=== PATIENT | female | born 1955 | race African-American/Black ===

== ENCOUNTER 2018-12-19 08:48 | Emergency (ER) | payer SELFPAY ==
[~2018-12-19] VITALS: Ht 167.6 cm; Wt 83.9 kg
[~2018-12-19 08:48] MED LIST: ASPI-482 PO; FLEXERIL; TRAM100T30 PO
[2018-12-19 09:26] LABS: BASO % 1 % (0-3); EOS % 1 % (0-3); HEMATOCRIT 39.2 % (36.0-47.0); HEMOGLOBIN 13.2 g/dL (12.0-15.5); LYMPH # 1.7 x10^3/uL (1.0-4.8); LYMPH % 41 % (24-48); MEAN CORPUSCULAR HEMOGLOBIN 32 pg (25-35); MEAN CORPUSCULAR HGB CONC 34 g/dL (31-37); MEAN CORPUSCULAR VOLUME 96 fL (79-100); MONO # 0.2 x10^3/uL (0.0-1.1); MONO % 6 % (0-9); NEUT # 2.1 x10^3uL (1.8-7.7); NEUT % 52 % (31-73); PLATELET COUNT 204 x10^3/uL (140-400); RED BLOOD COUNT 4.09 x10^6/uL (3.50-5.40); RED CELL DISTRIBUTION WIDTH 13.5 % (11.5-14.5); WHITE BLOOD COUNT 4.1 x10^3/uL (4.0-11.0)
[2018-12-19 09:36] LABS: CALCIUM 9.5 mg/dL (8.5-10.1); CREATININE 0.9 mg/dL (0.6-1.0); GFR 76.3; POTASSIUM 3.7 mmol/L (3.5-5.1)
--- NOTE | 2018-12-19 09:40 | RAD ---
CHEST AP ONLY Clinical indications: chest and dizziness since last night COMPARISON: None available. Findings: No acute lung infiltrate or pleural effusion or pulmonary edema or lung mass or pneumothorax is seen. The heart size, pulmonary vasculature, mediastinum and both nellie are unremarkable. Impression: No acute radiographic abnormality is seen. Electronically signed by: Brad Pablo MD (12/19/2018 9:35 AM) [facility]
[2018-12-19 09:43] LABS: ALBUMIN 3.5 g/dL (3.4-5.0); ALBUMIN/GLOBULIN RATIO 0.8 (1.0-1.7); TOTAL BILIRUBIN 0.7 mg/dL (0.2-1.0); TOTAL PROTEIN 7.8 g/dL (6.4-8.2)
[2018-12-19 10:28] LABS: BILIRUBIN,URINE MODERATE (NEG); CLARITY,URINE CLOUDY; COLOR,URINE ORANGE; NITRITE,URINE NEGATIVE (NEG); PH,URINE 5.5; PROTEIN,URINE 30 mg/dL (NEG-TRACE)
[2018-12-19 10:50] LABS: HYALINE CASTS, URINE FEW /HPF
[2018-12-19 10:51] LABS: BACTERIA,URINE MODERATE /HPF (0-FEW); RBC,URINE OCC /HPF (0-2); SQUAMOUS EPITHELIAL CELL,UR MOD /LPF
--- NOTE | 2018-12-19 11:20 | EKG ---
[facility] [address] [place] [address] Test Date: 2018-12-19 Test Time: 08:52:52 Pat Name: JEIMY CAMPOS Department: Room: Gender: F Color Room Attendant: : 1955 Requested By: SAGAR NGUYEN Order Number: [id number] Reading MD: Measurements Intervals [place] Rate: 90 P: 52 [place]: 136 QRS: 37 QRSD: 78 T: 70 QT: 360 QTc: 444 Interpretive Statements SINUS RHYTHM LEFT ATRIAL ABNORMALITY T ABNORMALITY IN HIGH LATERAL LEADS ABNORMAL ECG RI6.01 No previous ECG available for comparison
[2018-12-19] MEDS ORDERED: LORA-434 PO (12:25)
[2018-12-19 12:27] VITALS: BP 153/90
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
== END 2018-12-19 13:03 | disposition home or self-care (01) ==
LOC: ER 08:48
DX: F41.9 Anxiety disorder, unspecified (principal); R07.89 Other chest pain; R53.83 Other fatigue; R40.0 Somnolence; I25.10 Atherosclerotic heart disease of native coronary artery without angina pectoris; Z90.710 Acquired absence of both cervix and uterus; Z86.718 Personal history of other venous thrombosis and embolism
CPT/HCPCS: 36415; 71045; 80053; 81001; 83880; 84484; 85025; 93005; 99284-25

== ENCOUNTER 2018-12-20 20:44 | Emergency (ER) | payer SELFPAY ==
[2018-12-19 08:48] VITALS: BP 108/75
[~2018-12-20 20:44] MED LIST changes: +LORA-434 PO
== END 2018-12-20 20:45 | disposition left against medical advice (07) ==
LOC: ER 20:44
DX: M25.511 Pain in right shoulder (principal); Z53.21 Procedure and treatment not carried out due to patient leaving prior to being seen by health care provider

== ENCOUNTER 2019-08-23 09:50 | Emergency (ER) | payer SELFPAY ==
[~2019-08-23] VITALS: Ht 165.1 cm; Wt 88.5 kg
[2019-08-23 10:00] VITALS: BP 127/88
[2019-08-23 10:41] LABS: BASO % 1 % (0-3); EOS % 1 % (0-3); HEMOGLOBIN 13.8 g/dL (12.0-15.5); LYMPH # 0.9 x10^3/uL (1.0-4.8); LYMPH % 27 % (24-48); MEAN CORPUSCULAR HEMOGLOBIN 35 pg (25-35); MEAN CORPUSCULAR HGB CONC 34 g/dL (31-37); MEAN CORPUSCULAR VOLUME 102 fL (79-100); MONO # 0.2 x10^3/uL (0.0-1.1); MONO % 7 % (0-9); NEUT # 2.1 x10^3/uL (1.8-7.7); NEUT % 65 % (31-73); PLATELET COUNT 154 x10^3/uL (140-400); RED BLOOD COUNT 3.91 x10^6/uL (3.50-5.40); RED CELL DISTRIBUTION WIDTH 15.3 % (11.5-14.5); WHITE BLOOD COUNT 3.3 x10^3/uL (4.0-11.0)
--- NOTE | 2019-08-23 10:41 | PHYS DOC ---
Past Medical History Past Medical History: No Pertinent History Past Surgical History: Hysterectomy Alcohol Use: Occasionally Drug Use: None Adult General Chief Complaint Chief Complaint: DIZZY/LIGHT HEADED HPI HPI Patient is a 64 year old female who presents with complaining of fainting. Patient states she was standing at her kitchen this morning and lightheadedness and dizzy with blurred vision and had a syncopal episode with loss of consciousness without fall or head injury that was witnessed by her . Santy mallory denies focal neuro deficit, nausea and vomiting, fever and chills, abdominal pain, chest pain and shortness of breath, urinary symptom. Patient states she had 1 episode of vomiting 2 days ago. Patient states she has had 4-5 episodes of syncope for the last 3 months and was admitted to the [facility] and with extensive evaluation and was told she had fast heartbeat and no treatment was given. Patient denies using drugs and smoking cigarettes and states she during wine about twice a week. Review of Systems Review of Systems Constitutional: Denies fever or chills [] Eyes: Denies change in visual acuity, redness, or eye pain [] HENT: Denies nasal congestion or sore throat [] Respiratory: Denies cough or shortness of breath [] Cardiovascular: No additional information not addressed in HPI [] GI: Denies abdominal pain, nausea, vomiting, bloody stools or diarrhea [] : Denies dysuria or hematuria [] Musculoskeletal: Denies back pain or joint pain [] Integument: Denies rash or skin lesions [] Neurologic: Denies headache, focal weakness or sensory changes [] Endocrine: Denies polyuria or polydipsia [] All other systems were reviewed and found to be within normal limits, except as documented in this note. Current Medications Current Medications Current Medications Medications (Trade) Dose Ordered Sig/Zach Start Time Stop Time Status Last Admin Dose Admin Magnesium Oxide (Magnesium Oxide) 400 mg DAILY 08/23/19 13:00 08/23/19 14:22 DC 08/23/19 13:33 400 MG Sodium Chloride 1,000 ml @ 1,000 mls/hr 1X ONCE 08/23/19 12:15 08/23/19 13:14 DC 08/23/19 12:29 1,000 MLS/HR Allergies Allergies Allergies Coded Allergies Type Severity Reaction Last Updated Verified No Known Drug Allergies 11/05/14 No Physical Exam Physical Exam Constitutional: Well developed, well nourished, mild distress, non-toxic teddy earance. [] HENT: Normocephalic, atraumatic, bilateral external ears normal, oropharynx moist, no oral exudates, nose normal. [] Eyes: PERRLA, EOMI, conjunctiva normal, no discharge. [] Neck: Normal range of motion, no tenderness, supple, no stridor. [] Cardiovascular:Heart rate regular rhythm, no murmur [] Lungs & Thorax: Bilateral breath sounds clear to auscultation [] Abdomen: Bowel sounds normal, soft, no tenderness, no masses, no pulsatile masses. [] Skin: Warm, dry, no erythema, no rash. [] Back: No tenderness, no CVA tenderness. [] Extremities: No tenderness, no cyanosis, no clubbing, ROM intact, no edema. [] Neurologic: Alert and oriented X 3, normal motor function, normal sensory function, no focal deficits noted. [] Psychologic: Affect anxious, judgement normal, mood normal. [] Current Patient Data Vital Signs Vital Signs Date Time Temp Pulse Resp B/P (MAP) Pulse Ox O2 Delivery O2 Flow Rate FiO2 08/23/19 10:00 98.5 99 16 127/88 (101) 99 Room Air 98.5 Lab Values Laboratory Tests Test 08/23/19 10:25 08/23/19 11:50 08/23/19 11:55 White Blood Count 3.3 x10^3/uL (4.0-11.0) L Red Blood Count 3.91 x10^6/uL (3.50-5.40) Hemoglobin 13.8 g/dL (12.0-15.5) Hematocrit 40.0 % (36.0-47.0) Mean Corpuscular Volume 102 fL (79-100) H Mean Corpuscular Hemoglobin 35 pg (25-35) Mean Corpuscular Hemoglobin Concent 34 g/dL (31-37) Red Cell Distribution Width 15.3 % (11.5-14.5) H Platelet Count 154 x10^3/uL (140-400) Neutrophils (%) (Auto) 65 % (31-73) Lymphocytes (%) (Auto) 27 % (24-48) Monocytes (%) (Auto) 7 % (0-9) Eosinophils (%) (Auto) 1 % (0-3) Basophils (%) (Auto) 1 % (0-3) Neutrophils # (Auto) 2.1 x10^3/uL (1.8-7.7) Lymphocytes # (Auto) 0.9 x10^3/uL (1.0-4.8) L Monocytes # (Auto) 0.2 x10^3/uL (0.0-1.1) Eosinophils # (Auto) 0.0 x10^3/uL (0.0-0.7) Basophils # (Auto) 0.0 x10^3/uL (0.0-0.2) Sodium Level 142 mmol/L (136-145) Potassium Level 4.4 mmol/L (3.5-5.1) Chloride Level 102 mmol/L (98-107) Carbon Dioxide Level 29 mmol/L (21-32) Anion Gap 11 (6-14) Blood Urea Nitrogen 11 mg/dL (7-20) Creatinine 0.8 mg/dL (0.6-1.0) Estimated GFR (Cockcroft-Gault) 87.1 BUN/Creatinine Ratio 14 (6-20) Glucose Level 97 mg/dL (70-99) Calcium Level 10.2 mg/dL (8.5-10.1) H Magnesium Level 1.5 mg/dL (1.8-2.4) L Total Bilirubin 1.0 mg/dL (0.2-1.0) Aspartate Amino Transferase (AST) 389 U/L (15-37) H Alanine Aminotransferase (ALT) 143 U/L (14-59) H Alkaline Phosphatase 215 U/L (46-116) H Troponin I Quantitative < 0.017 ng/mL (0.000-0.055) Total Protein 8.0 g/dL (6.4-8.2) Albumin 3.9 g/dL (3.4-5.0) Albumin/Globulin Ratio 1.0 (1.0-1.7) Ethyl Alcohol Level < 10 mg/dL (0-10) Urine Opiates Screen Neg (NEG) Urine Methadone Screen Neg (NEG) Urine Barbiturates Neg (NEG) Urine Phencyclidine Screen Neg (NEG) Urine Amphetamine/Methamphetamine Neg (NEG) Urine Benzodiazepines Screen Neg (NEG) Urine Cocaine Screen Neg (NEG) Urine Cannabinoids Screen Neg (NEG) Urine Ethyl Alcohol Pos (NEG) Laboratory Tests 08/23/19 10:25 Laboratory Tests 08/23/19 11:50 EKG EKG EKG interpreted by me. EKG at 1005 showed normal sinus rhythm at rate of 95, Q- wave in anterolateral leads, no acute ST and T-wave abnormalities. Radiology/Procedures Radiology/Procedures [][place] [address] IMAGING REPORT Signed PATIENT: JEIMY CAMPOS PACCOUNT: [id number] : 1955 LOCATION: ER AGE: 64 SEX: F EXAM STATUS: REG ER ORD. PHYSICIAN: DEIRDRE KELSEY MD REASON: syncope PROCEDURE: CHEST PA & LATERAL CHEST PA LATERAL INDICATION: Syncope. COMPARISON STUDY: 12/19/2018. FINDINGS: Lungs: Normal lung volume. No pulmonary mass or consolidation. The tracheobronchial tree and hilar structures are normal. Pleura: No pleural effusion or pneumothorax. Heart and Mediastinum: The cardiomediastinal silhouette is normal. The great vessels of the thorax are normal. Bones and Soft Tissues: The bones and soft tissues are within normal limits. IMPRESSION: No acute cardiopulmonary process. Electronically signed by: Tal Bonilla MD (08/23/2019 11:09 AM) [facility] DICTATED and SIGNED BY: TAL BONILLA MD DATE: 08/23/[address] [id number] IMAGING REPORT Signed PATIENT: JEIMY CAMPOS PACCOUNT: [id number] : 1955 LOCATION: ER AGE: 64 SEX: F EXAM STATUS: REG ER ORD. PHYSICIAN: DEIRDRE KELSEY MD REASON: syncope PROCEDURE: CT HEAD WO CONTRAST CT scan of the head without contrast 08/23/2019 Clinical History: Syncope. Technique: Unenhanced, contiguous, 5 mm axial sections were obtained through the head. One or more of the following individualized dose reduction techniques were utilized for this study: 1. Automated exposure control. 2. Adjustment of the mA and/or kV according to patient size. 3. Use of iterative reconstruction technique. Findings: No previous studies are available for comparison. There is generalized parenchymal atrophy. Areas of decreased attenuation are seen within the periventricular and subcortical white matter of both cerebral hemispheres consistent with areas of small vessel ischemic disease. No acute parenchymal abnormality is seen. No extra-axial fluid collection is noted. No skull fracture is seen. Impression: No acute intracranial abnormality is seen. Electronically signed by: Alexei Lopes MD (08/23/2019 11:03 AM) [facility] DICTATED and SIGNED BY: ALEXEI LOPES MD DATE: 08/23/191102 Course & Med Decision Making Course & Med Decision Making Pertinent Labs and Imaging studies reviewed. (See chart for details) Evaluation of patient in ER showed 64-year-old female patient with history of alcohol abuse and recurrent syncopal episode presented to ER with complaining of another syncopal episode. Patient had extensive evaluation in her previous admission to [facility]. Patient had tachycardia and anxiety and treated with IV fluid with improvement of her condition. Patient had elevation of liver function tests and magnesium of 1.5 and treated with magnesium. She was advised quit drinking alcohol and follow up with her primary care physician regarding recurrent syncope. I've spoken with the patient and/or caregivers. I've explained the patient's condition, diagnosis and treatment plan based on information available to me at this time. I've answered the patient's and/or caregivers questions and addressed any concerns. The patient and/or caregivers have a good understanding the patient's diagnosis, condition and treatment plan as can be expected at this point. Vital signs have been stabilized. The patient's condition is stable for discharge from the emergency department. The patient will pursue further outpatient evaluation with her primary care provider or other designated consulting physician as outlined in the discharge instructions. Patient and/or caregivers are agreeable to this plan of care and follow-up instructions have been explained in detail. The patient and/or caregivers have received these instructions in written format and expressed understanding of these discharge instructions. The patient and her caregivers are aware that if any significant change in condition or worsening of symptoms should prompt him to immediately return to this of the closest emergency department. If an emergent department is not readily available I would encourage him to call 911. Gabby Disclaimer Gabby Disclaimer This electronic medical record was generated, in whole or in part, using a voice recognition dictation system. Departure Departure Impression: Primary Impression: Recurrent syncope Additional Impressions: Alcohol abuse Elevated liver function tests Leukopenia Anxiety Hypomagnesemia Disposition: HOME, SELF-CARE (at 1306) Condition: IMPROVED Referrals: UNKNOWN PCP NAME (PCP) Patient Instructions: Alcohol Problems, Hypomagnesemia, Syncope Additional Instructions: Drink plenty of liquids Follow-up with your primary care physician in 2-3 days Return to ER if not getting better Stop drinking alcohol Scripts Magnesium Oxide (MAGNESIUM OXIDE) 400 Mg Tablet 1 TAB PO BID, #14 TAB 0 Refills Prov: DEIRDRE KELSEY MD 08/23/19 Problem Qualifiers Additional Impressions: Leukopenia Leukopenia type: unspecified Qualified Codes: D72.819 - Decreased white blood cell count, unspecified DEIRDRE KELSEY MD Aug 23, 2019 10:41
--- NOTE | 2019-08-23 11:06 | RAD ---
CT scan of the head without contrast 08/23/2019 Clinical History: Syncope. Technique: Unenhanced, contiguous, 5 mm axial sections were obtained through the head. One or more of the following individualized dose reduction techniques were utilized for this study: 1. Automated exposure control. 2. Adjustment of the mA and/or kV according to patient size. 3. Use of iterative reconstruction technique. Findings: No previous studies are available for comparison. There is generalized parenchymal atrophy. Areas of decreased attenuation are seen within the periventricular and subcortical white matter of both cerebral hemispheres consistent with areas of small vessel ischemic disease. No acute parenchymal abnormality is seen. No extra-axial fluid collection is noted. No skull fracture is seen. Impression: No acute intracranial abnormality is seen. Electronically signed by: Alexei Lopes MD (08/23/2019 11:03 AM) [facility]
--- NOTE | 2019-08-23 11:12 | RAD ---
CHEST PA LATERAL INDICATION: Syncope. COMPARISON STUDY: 12/19/2018. FINDINGS: Lungs: Normal lung volume. No pulmonary mass or consolidation. The tracheobronchial tree and hilar structures are normal. Pleura: No pleural effusion or pneumothorax. Heart and Mediastinum: The cardiomediastinal silhouette is normal. The great vessels of the thorax are normal. Bones and Soft Tissues: The bones and soft tissues are within normal limits. IMPRESSION: No acute cardiopulmonary process. Electronically signed by: Jabier Bonilla MD (08/23/2019 11:09 AM) [facility] [place]
[2019-08-23 12:07] LABS: CALCIUM 10.2 mg/dL (8.5-10.1); CREATININE 0.8 mg/dL (0.6-1.0); GFR 87.1; POTASSIUM 4.4 mmol/L (3.5-5.1)
[2019-08-23 12:13] LABS: ALBUMIN 3.9 g/dL (3.4-5.0); MAGNESIUM 1.5 mg/dL (1.8-2.4)
[2019-08-23] MEDS ORDERED: IV NORMAL SALINE 1000ML BAG 1,000 ML IV ONE (12:15)
[2019-08-23 12:22] LABS: BARBITURATES NEG (NEG); BENZODIAZEPINES NEG (NEG); CANNABINOIDS NEG (NEG); COCAINE NEG (NEG); METHADONE NEG (NEG); OPIATES NEG (NEG); PHENCYCLIDINE NEG (NEG)
[2019-08-23 12:23] LABS: AMPHETAMINE/METHAMPHETAMINE NEG (NEG)
[2019-08-23] MEDS ORDERED: MAGNESIUM OXIDE 400 MG TABLET PO SCH (13:00)
[2019-08-23] MEDS ORDERED: MAGN400T5 PO (13:46)
--- NOTE | 2019-08-25 08:04 | EKG ---
[facility] [address] [place] [address] Test Date: 2019-08-23 Test Time: 10:05:52 Pat Name: JEIMY CAMPOS Department: Room: Gender: F Supervisor Inspecting: : 1955 Requested By: DEIRDRE KELSEY Order Number: [id number] Reading MD: Measurements Intervals [place] Rate: 95 P: 57 [place]: 152 QRS: 35 QRSD: 66 T: 57 QT: 342 QTc: 433 Interpretive Statements SINUS RHYTHM QRS(T) CONTOUR ABNORMALITY CONSIDER ANTEROLATERAL MYOCARDIAL DAMAGE CONSIDER INFERIOR MYOCARDIAL DAMAGE POSSIBLY ABNORMAL ECG RI6.01 No previous ECG available for comparison
== END 2019-08-23 13:55 | disposition home or self-care (01) ==
LOC: ER 09:50
DX: R55 Syncope and collapse (principal); F10.10 Alcohol abuse, uncomplicated; Y90.0 Blood alcohol level of less than 20 mg/100 ml; R79.89 Other specified abnormal findings of blood chemistry; D72.819 Decreased white blood cell count, unspecified; F41.9 Anxiety disorder, unspecified; E83.42 Hypomagnesemia; Z90.710 Acquired absence of both cervix and uterus; F17.210 Nicotine dependence, cigarettes, uncomplicated
CPT/HCPCS: 36415; 70450; 71046; 80053; 80307; 83735; 84484; 85025; 93005; 96360; 99285; G0480; J7030

== ENCOUNTER 2021-09-17 08:41 | Observation (INO) | payer OTHER ==
[~2021-09-17] VITALS: Ht 162.6 cm; Wt 50.8 kg
[~2021-09-17 08:41] MED LIST changes: +MAGN400T48 PO
[2021-09-17] MEDS ORDERED: IV RINGERS,LACTATED 1000ML 1,000 ML IV SCH (08:45)
[2021-09-17] MEDS ORDERED: IV NORMAL SALINE 1000ML BAG 1,000 ML IV ONE (09:30)
[2021-09-17 09:39] LABS: BASO # 0.1 x10^3/uL (0.0-0.2); BASO % 1 % (0-3); EOS # 0.1 x10^3/uL (0.0-0.7); EOS % 1 % (0-3); HEMATOCRIT 29.9 % (36.0-47.0); LYMPH # 0.9 x10^3/uL (1.0-4.8); LYMPH % 12 % (24-48); MEAN CORPUSCULAR HEMOGLOBIN 35 pg (25-35); MEAN CORPUSCULAR HGB CONC 34 g/dL (31-37); MEAN CORPUSCULAR VOLUME 103 fL (79-100); MONO # 0.3 x10^3/uL (0.0-1.1); MONO % 5 % (0-9); NEUT # 5.9 x10^3/uL (1.8-7.7); NEUT % 82 % (31-73); PLATELET COUNT 182 x10^3/uL (140-400); RED BLOOD COUNT 2.89 x10^6/uL (3.50-5.40); RED CELL DISTRIBUTION WIDTH 14.9 % (11.5-14.5); WHITE BLOOD COUNT 7.3 x10^3/uL (4.0-11.0)
--- NOTE | 2021-09-17 09:42 | RAD ---
Single view chest dated 09/17/2021 9:39 AM: COMPARISON: 03/08/2021 Clinical Indication: Syncope. Findings: Single upright portable exam of the chest was performed. Heart size and mediastinal contours are with in normal limits. Lungs are clear. No consolidation or pleural effusion. No pneumothorax. IMPRESSION: No acute radiographic abnormality. Electronically signed by: Alfie Gordon MD (09/17/2021 9:39 AM) [id number]
[2021-09-17 09:49] LABS: CALCIUM 9.2 mg/dL (8.5-10.1); CREATININE 1.2 mg/dL (0.6-1.0); GFR 54.2; POTASSIUM 3.5 mmol/L (3.5-5.1)
[2021-09-17 09:55] LABS: DIRECT BILIRUBIN 1.5 mg/dL (0.0-0.2); MAGNESIUM 1.2 mg/dL (1.8-2.4); TOTAL BILIRUBIN 2.3 mg/dL (0.2-1.0); TOTAL PROTEIN 7.4 g/dL (6.4-8.2)
[2021-09-17 10:05] LABS: BILIRUBIN,URINE LARGE (NEG); CLARITY,URINE CLEAR; COLOR,URINE ORANGE; NITRITE,URINE POSITIVE (NEG); PROTEIN,URINE 30 mg/dL (NEG-TRACE)
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
[2021-09-17 10:12] LABS: AMPHETAMINE/METHAMPHETAMINE NEG (NEG); BARBITURATES NEG (NEG); BENZODIAZEPINES NEG (NEG); CANNABINOIDS NEG (NEG); COCAINE NEG (NEG); METHADONE NEG (NEG); OPIATES NEG (NEG); PHENCYCLIDINE NEG (NEG)
[2021-09-17 10:24] LABS: HYALINE CASTS, URINE FEW /HPF
[2021-09-17 10:25] LABS: BACTERIA,URINE 0 /HPF (0-FEW); RBC,URINE 0 /HPF (0-2); WBC,URINE OCC /HPF (0-4)
--- NOTE | 2021-09-17 10:32 | PHYS DOC ---
Past Medical History Past Medical History: Other Additional Past Medical Histor: HEART MURMUR, 'POSSIBLE SEIZURE' Past Surgical History: Hysterectomy Smoking Status: Never Smoker Alcohol Use: None Drug Use: None General Adult EDM: Chief Complaint: SYNCOPE HPI: HPI: 66-year-old female presents the ED from home after her called 911, heard patient collapse in the bathroom while he was asleep. Reports patient has been fainting for the past few years but is no longer eating for the past few months. Has dropped significant weight. In ed pt states she has no appetite. Does not know the year, month, her home address or number of her . EMS reports concern for dementia and inability to care for herself. Review of Systems: Review of Systems: Constitutional: Denies fever or chills. [] Eyes: Denies change in visual acuity. [] HENT: Denies nasal congestion or sore throat. [] Respiratory: Denies cough or shortness of breath. [] Cardiovascular: Denies chest pain or edema. [] GI: Denies nausea or vomiting : Denies dysuria or hematuria Musculoskeletal: Denies back pain or joint pain. [] Integument: Denies rash or diaphoresis Neurologic: Denies headache, focal weakness or sensory changes. [] Endocrine: Denies polyuria or polydipsia. [] Lymphatic: Denies swollen glands. [] Psychiatric: Denies depression or anxiety. [] Heart Score: C/O Chest Pain: No Risk Factors: Risk Factors: DM, Current or recent (<one month) smoker, HTN, HLP, family history of CAD, obesity. Risk Scores: Score 0 - 3: 2.5% MACE over next 6 weeks - Discharge Home Score 4 - 6: 20.3% MACE over next 6 weeks - Admit for Clinical Observation Score 7 - 10: 72.7% MACE over next 6 weeks - Early Invasive Strategies Current Medications: Current Medications Medications (Trade) Dose Ordered Sig/Zach Start Time Stop Time Status Last Admin Dose Admin Ringer's Solution 1,000 ml @ 1,000 mls/hr Q1H 09/17/21 08:45 09/17/21 09:31 DC Sodium Chloride 1,000 ml @ 1,000 mls/hr 1X ONCE 09/17/21 09:30 09/17/21 10:29 09/17/21 09:49 1,000 MLS/HR Allergies: Allergies: Allergies Coded Allergies Type Severity Reaction Last Updated Verified soy Allergy Intermediate Hives 03/20/21 Yes Physical Exam: PE: Constitutional: Well developed, well nourished, no acute distress, non-toxic appearance, thin HENT: Normocephalic, atraumatic, Eyes: PERRLA, EOMI, conjunctiva normal, no discharge. Neck: Normal range of motion, supple, Cardiovascular: S1/2 present, regular rhythm Lungs & Thorax: Speaking in full sentences, bilateral equal chest rise, no tachypnea or increased work of breathing Abdomen: soft, no tenderness, Skin: Warm, dry, no erythema, no rash. [] Back: No midline tenderness, no CVA tenderness. [] Extremities: No tenderness, no cyanosis, no lower extremity edema Neurologic: Alert, normal motor function, normal sensory function, no focal deficits noted. [] Psychologic: Affect normal, judgement normal, mood normal. [] Current Patient Data: Labs: Laboratory Tests Test 09/17/21 08:46 09/17/21 09:25 09/17/21 10:00 Glucose (Fingerstick) 67 mg/dL (70-99) L White Blood Count 7.3 x10^3/uL (4.0-11.0) Red Blood Count 2.89 x10^6/uL (3.50-5.40) L Hemoglobin 10.0 g/dL (12.0-15.5) L Hematocrit 29.9 % (36.0-47.0) L Mean Corpuscular Volume 103 fL (79-100) H Mean Corpuscular Hemoglobin 35 pg (25-35) Mean Corpuscular Hemoglobin Concent 34 g/dL (31-37) Red Cell Distribution Width 14.9 % (11.5-14.5) H Platelet Count 182 x10^3/uL (140-400) Neutrophils (%) (Auto) 82 % (31-73) H Lymphocytes (%) (Auto) 12 % (24-48) L Monocytes (%) (Auto) 5 % (0-9) Eosinophils (%) (Auto) 1 % (0-3) Basophils (%) (Auto) 1 % (0-3) Neutrophils # (Auto) 5.9 x10^3/uL (1.8-7.7) Lymphocytes # (Auto) 0.9 x10^3/uL (1.0-4.8) L Monocytes # (Auto) 0.3 x10^3/uL (0.0-1.1) Eosinophils # (Auto) 0.1 x10^3/uL (0.0-0.7) Basophils # (Auto) 0.1 x10^3/uL (0.0-0.2) Sodium Level 138 mmol/L (136-145) Potassium Level 3.5 mmol/L (3.5-5.1) Chloride Level 94 mmol/L (98-107) L Carbon Dioxide Level 26 mmol/L (21-32) Anion Gap 18 (6-14) H Blood Urea Nitrogen 20 mg/dL (7-20) Creatinine 1.2 mg/dL (0.6-1.0) H Estimated GFR (Cockcroft-Gault) 54.2 Glucose Level 80 mg/dL (70-99) Calcium Level 9.2 mg/dL (8.5-10.1) Magnesium Level 1.2 mg/dL (1.8-2.4) L Total Bilirubin 2.3 mg/dL (0.2-1.0) H Direct Bilirubin 1.5 mg/dL (0.0-0.2) H Aspartate Amino Transferase (AST) 202 U/L (15-37) H Alanine Aminotransferase (ALT) 44 U/L (14-59) Alkaline Phosphatase 258 U/L (46-116) H Troponin I High Sensitivity 10 ng/L (4-50) QQ-Apb-G-Type Natriuretic Peptide 280 pg/mL (0-124) H Total Protein 7.4 g/dL (6.4-8.2) Albumin 3.0 g/dL (3.4-5.0) L Lipase 173 U/L (73-393) SARS-CoV-2 Antigen (Rapid) Negative (NEGATIVE) Urine Collection Type U cath Urine Color [place] Urine Clarity Clear Urine pH 6.0 (<5.0-8.0) Urine Specific [place] 1.020 (1.000-1.030) Urine Protein 30 mg/dL (NEG-TRACE) Urine Glucose (UA) Negative mg/dL (NEG) Urine Ketones (Stick) 40 mg/dL (NEG) Urine Blood Negative (NEG) Urine Nitrite Positive (NEG) Urine Bilirubin Large (NEG) Urine Urobilinogen Dipstick 4.0 mg/dL (0.2 mg/dL) Urine Leukocyte Esterase Small (NEG) Urine RBC 0 /HPF (0-2) Urine WBC Occ /HPF (0-4) Urine Bacteria 0 /HPF (0-FEW) Urine Hyaline Casts Few /HPF Urine Mucus Mod /LPF Urine Opiates Screen Neg (NEG) Urine Methadone Screen Neg (NEG) Urine Barbiturates Neg (NEG) Urine Phencyclidine Screen Neg (NEG) Urine Amphetamine/Methamphetamine Neg (NEG) Urine Benzodiazepines Screen Neg (NEG) Urine Cocaine Screen Neg (NEG) Urine Cannabinoids Screen Neg (NEG) Urine Ethyl Alcohol Pos (NEG) Laboratory Tests 09/17/21 09:25 Laboratory Tests 09/17/21 09:25 Vital Signs: Vital Signs Date Time Temp Pulse Resp B/P (MAP) Pulse Ox O2 Delivery O2 Flow Rate FiO2 09/17/21 08:41 98.0 87 16 115/77 (90) 96 Room Air 98.0 EKG: EK sinus rhythm 76 bpm, no axis deviation, normal intervals, no obvious T wave inversion, ST elevation or ST depression, no active chest pain 1019 sinus rhythm 70 bpm, no axis deviation, normal intervals, no obvious ST elevation, ST depression or T wave inversion, no active chest pain Radiology/Procedures: Radiology/Procedures: IMAGING REPORT Signed PATIENT: JEIMY CAMPOS PACCOUNT: [id number] : 1955 LOCATION: ER AGE: 66 SEX: F EXAM STATUS: PRE ER ORD. PHYSICIAN: RUDDY ALLEN DO REASON: near-syncope PROCEDURE: PORTABLE CHEST 1V Single view chest dated 09/17/2021 9:39 AM: COMPARISON: 03/08/2021 Clinical Indication: Syncope. Findings: Single upright portable exam of the chest was performed. Heart size and mediastinal contours are within normal limits. Lungs are clear. No consolidation or pleural effusion. No pneumothorax. IMPRESSION: No acute radiographic abnormality. Electronically signed by: Alfie Gordon MD (09/17/2021 9:39 AM) [id number] DICTATED and SIGNED BY: ALFIE GORDON MD DATE: 09/17/21 [id number] IMAGING REPORT Signed PATIENT: JEIMY CAMPOS PACCOUNT: [id number] : 1955 LOCATION: ER AGE: 66 SEX: F EXAM STATUS: PRE ER ORD. PHYSICIAN: RUDDY ALLEN DO REASON: syncope PROCEDURE: CT HEAD AND CERVICAL SPINE WO Exam Date: 09/17/2021 9:[address] HEAD AND C-SPINE WO Indication: Reason: syncope / Spl. Instructions: / History: . One or more of the following dose reduction techniques were utilized: *Automated exposure control (AEC) *Adjustment of mA and/or kV according to patient size *Use of iterative reconstruction technique *CT scan done according to ALARA, or ALARA/IMAGE GENTLY EXAMINATION: CT OF THE HEAD WITHOUT CONTRAST INDICATION: Trauma, head injury, headache; TECHNIQUE: Noncontrast helical axial CT images of the head were obtained. COMPARISON: March 08, 2021 FINDINGS: The ventricles and sulci are prominent consistent with cerebral volume loss. Patchy ill-defined low attenuation areas in the subcortical and periventricular white matter bilaterally are consistent with microvascular disease. There is no evidence of acute intracranial hemorrhage, extra-axial collection, mass effect, midline shift, or acute territorial infarct. No lesion of the skull base or the calvarium is seen. The visualized paranasal sinuses, mastoid air cells, and orbits are normal in appearance. IMPRESSION: No evidence for acute intracranial abnormality. Volume loss and microvascular disease. EXAMINATION: CT OF THE CERVICAL SPINE WITHOUT CONTRAST Clinical Indication: Cervical spine pain after trauma Technique: Thin cut helical axial CT images through the cervical spine were obtained without contrast on a multi-detector CT scanner. Source data was then reconstructed into sagittal and coronal planes. Findings: Alignment is maintained without spondylolisthesis. Vertebral body heights are maintained without acute fracture. Moderate multilevel degenerative changes are noted. No significant prevertebral soft tissue swelling is demonstrated. No severe osseous central canal stenosis is seen. Impression: No evidence of acute cervical spine fracture or subluxation. Electronically signed by: Grace Mcguire MD (09/17/2021 10:02 AM) [id number] DICTATED and SIGNED BY: GRACE MCGUIRE MD DATE: 09/17/21 [id number] IMAGING REPORT Signed PATIENT: JEIMY CAMPOS PACCOUNT: [id number] : 1955 LOCATION: [facility] AGE: 66 SEX: F EXAM STATUS: ADM IN ORD. PHYSICIAN: RUDDY ALLEN DO REASON: elevated liver enzymes, ruq us PROCEDURE: ABDOMEN LTD Exam Date: 09/17/2021 11:46 AM US ABDOMEN LIMITED Indication: Reason: elevated liver enzymes, ruq us / Spl. Instructions: / Histo ry: . TECHNIQUE: Multiple longitudinal and transverse sonographic images of the right upper quadrant and gallbladder are submitted for interpretation. COMPARISON: March 08, 2021 ultrasound FINDINGS: There is a 1.4 cm hepatic cyst. The liver is normal in size but diffusely increased in echogenicity and heterogeneous in echotexture. The portal vein is patent, with hepatopetal flow. No suspicious focal intrahepatic abnormality is seen. There are multiple gallstones. There is no gallbladder wall thickening or pericholecystic fluid. There is no biliary ductal dilatation, with the common bile duct measuring 4 mm. The visualized abdominal aorta, inferior vena cava and pancreas are within normal limits. There is no upper abdominal ascites. The right kidney is normal in appearance, measuring 10.1 cm. IMPRESSION: Diffusely increased hepatic echogenicity and heterogeneous echotexture, consistent with underlying fatty infiltration and/or hepatocellular disease. This limits sonographic sensitivity. Hepatic cyst. Gallstones. Electronically signed by: Grace Mcguire MD (09/17/2021 12:20 PM) [id number] DICTATED and SIGNED BY: GRACE MCGUIRE MD DATE: 09/17/21 [id number] 0 Course & Med Decision Making: Course & Med Decision Making Pertinent Labs and Imaging studies reviewed. (See chart for details) Concern for syncope with no obvious signs of trauma in the setting of UTI. Patient appears confused, EMS suspected dementia. consents to admission for further medical management. I have spoken with the patient and/or caregivers. I have explained the patient's condition, diagnosis and treatment plan based on the information available to me at this time. I have answered the patient's and/or caregivers questions and answered any concerns. The patient and/or caregivers have as good an understanding of the patient's diagnosis, condition and treatment plan as can be expected at this point. The patient has been stabilized within the capability of the emergency department. The patient will be transported for further care and management or will be moved to an observation or inpatient service. I have communicated with the staff or medical practitioner taking over this patient's care. Dragon Disclaimer: Dragon Disclaimer: This electronic medical record was generated, in whole or in part, using a voice recognition dictation system. Departure Departure Impression: Primary Impression: Syncope and collapse Additional Impressions: UTI (urinary tract infection) Conjugated hyperbilirubinemia Disposition: ADMITTED INPATIENT Admitting Physician: SUSAN (Dr. Rudolph) Condition: STABLE Referrals: NO PCP (PCP) RUDDY ALLEN DO Sep 17, 2021 10:32
[2021-09-17 11:12] LABS: SALIC 1.6 mg/dL (2.8-20.0)
[2021-09-17] MEDS ORDERED: cefTRIAXone IV Push 1 GM VIAL. IVP ONE (11:45)
--- NOTE | 2021-09-17 12:22 | RAD ---
Exam Date: 09/17/2021 11:46 AM US ABDOMEN LIMITED Indication: Reason: elevated liver enzymes, ruq us / Spl. Instructions: / History: . TECHNIQUE: Multiple longitudinal and transverse sonographic images of the right upper quadrant and g allbladder are submitted for interpretation. COMPARISON: March 08, 2021 ultrasound FINDINGS: There is a 1.4 cm hepatic cyst. The liver is normal in size but diffusely increased in echogenicity and heterogeneous in echotexture. The portal vein is patent, with hepatopetal flow. No suspicious focal intrahepatic abnormality i s seen. There are multiple gallstones. There is no gallbladder wall thickening or pericholecystic fluid. Th ere is no biliary ductal dilatation, with the common bile duct measuring 4 mm. The visualized abdominal aorta, inferior vena cava and pancreas are within normal limits. There is n o upper abdominal ascites. The right kidney is normal in appearance, measuring 10.1 cm. IMPRESSION: Diffusely increased hepatic echogenicity and heterogeneous echotexture, consistent with underlying fa tty infiltration and/or hepatocellular disease. This limits sonographic sensitivity. Hepatic cyst. Gallstones. Electronically signed by: Mitchel Mcguire MD (09/17/2021 12:20 PM) [id number]
[2021-09-17 12:30] VITALS: BP 122/72
--- NOTE | 2021-09-17 12:42 | PDOC1 ---
History and Physical Date of Admission Date of Admission DATE: 09/17/21 TIME: 12:33 Identification/Chief Complaint Chief Complaint Syncope Source Source: Chart review, Patient History of Present Illness History of Present Illness Patient 66-year-old female with past medical history heart murmur, seizure, who presents to the ED after asking her collapsed in the bathroom. She apparently has been fainting over the past 2 weeks. She states this morning that everything went "dark and black ", and she began having some shakes. She told her that she felt faint and collapsed to the ground. The shakes lasted approximately 30 minutes. She denies any postictal confusion. She has no PCP. She states that she has a work-up plan with a balance staff inspector next , but does not have a PCP. Dr. Dowell myself are concerned about some underlying dementia given the inconsistencies in his story. She does admit to some urinary urgency and frequency over the past 3 days. Patient also reports poor oral intake over the past few months. Labs admission showed hemoglobin 10.0, hematocrit 29.9, creatinine 1.2, AST 202, ALT 44, albumin 3.6, urine ethanol positive, urinalysis nitrite positive, small leukocyte esterase, occasional WBC. Due to concerns for recurrent syncope and completely unsafe discharge at this time, will admit patient for further medical management. Past Medical History Cardiovascular: Syncope, Other Pulmonary: No pertinent hx CENTRAL NERVOUS SYSTEM: Seizure GI: GERD, Other Heme/Onc: Anemia NOS Hepatobiliary: Other Psych: Anxiety, Depression, Other Musculoskeletal: Osteoarthritis Rheumatologic: No pertinent hx Infectious disease: No pertinent hx Renal/: No pertinent hx Endocrine: No pertinent hx Past Surgical History Past Surgical History: Hysterectomy Family History Family History: Cancer Family History: Parent Social History Smoke: No ALCOHOL: none (Although patient denies alcohol, urine ethanol was positive) Drugs: None Current Problem List Problem List Problems Medical Problems: (1) Alcohol abuse Status: Acute (2) Conjugated hyperbilirubinemia Status: Acute (3) Syncope and collapse Status: Acute (4) UTI (urinary tract infection) Status: Acute Current Medications Current Medications Current Medications Ringer's Solution 1,000 ml @ 1,000 mls/hr Q1H IV ; Start 09/17/21 at 08:45; Stop 09/17/21 at 09:31; Status DC Sodium Chloride 1,000 ml @ 1,000 mls/hr 1X ONCE IV Last administered on 09/17at 09:49; Start 09/17/21 at 09:30; Stop 09/17/21 at 10:29; Status DC Ceftriaxone Sodium (Rocephin) 1 gm 1X ONCE IVP Last administered on 09/17/21at 11:59; Start 09/17/21 at 11:45; Stop 09/17/21 at 11:46; Status DC Active Scripts Active Magnesium Oxide 400 Mg Tablet 1 Tab PO BID Ativan (Lorazepam) 1 Mg Tablet 1 Mg PO BID PRN Reported Aspir 81 (Aspirin) 81 Mg Tablet.dr 81 Mg PO [Flexeril] Tramadol Hcl 100 Mg Tab.er.24h 100 Mg PO Allergies Allergies: Coded Allergies: soy (Verified Allergy, Intermediate, Hives, 03/20/21) ROS Review of System GENERAL: No history of weight change, weakness or fevers. SKIN: No bruising, hair changes or rashes. EYES: No blurred, double or loss of vision. NOSE AND THROAT: No history of nosebleeds, hoarseness or sore throat. HEART: Syncope. Denies chest pain, denies palpitations. LUNGS: Denies cough, hemoptysis, wheezing or shortness of breath. GASTROINTESTINAL: Denies nausea, vomiting, abdominal pain. GENITOURINARY: Urinary frequency, urinary urgency. Denies dysuria. NEUROLOGIC: Tremors. Denies history of numbness, tingling, or weakness. PSYCHIATRIC: Denies anxiety, denies depression. ENDOCRINE: No history of heat or cold intolerance, polyuria or polydipsia. EXTREMITIES: Denies muscle weakness, joint pain, pain on walking or stiffness. Physical Exam Physical Exam General: Alert, Oriented X 2, Cooperative, No acute distress. Frail-appearing. HEENT: PERRLA, EOMI Lungs: Clear to auscultation, Normal air movement Heart: RRR Cardiovascular: S1, S2 Abdomen: Normal bowel sounds, Soft, No tenderness Extremities: No clubbing, No cyanosis Skin: No rashes, No significant lesion Neuro: Normal speech, Normal tone, Sensation intact Psych/Mental Status: Mental status NL, Mood NL Vitals Vitals Vital Signs Date Time Temp Pulse Resp B/P (MAP) Pulse Ox O2 Delivery O2 Flow Rate FiO2 09/17/21 12:10 91 19 122/62 (82) 100 Room Air 09/17/21 08:41 98.0 98.0 Labs Labs Laboratory Tests Test 09/17/21 08:46 09/17/21 09:25 09/17/21 10:00 Glucose (Fingerstick) 67 mg/dL (70-99) White Blood Count 7.3 x10^3/uL (4.0-11.0) Red Blood Count 2.89 x10^6/uL (3.50-5.40) Hemoglobin 10.0 g/dL (12.0-15.5) Hematocrit 29.9 % (36.0-47.0) Mean Corpuscular Volume 103 fL (79-100) Mean Corpuscular Hemoglobin 35 pg (25-35) Mean Corpuscular Hemoglobin Concent 34 g/dL (31-37) Red Cell Distribution Width 14.9 % (11.5-14.5) Platelet Count 182 x10^3/uL (140-400) Neutrophils (%) (Auto) 82 % (31-73) Lymphocytes (%) (Auto) 12 % (24-48) Monocytes (%) (Auto) 5 % (0-9) Eosinophils (%) (Auto) 1 % (0-3) Basophils (%) (Auto) 1 % (0-3) Neutrophils # (Auto) 5.9 x10^3/uL (1.8-7.7) Lymphocytes # (Auto) 0.9 x10^3/uL (1.0-4.8) Monocytes # (Auto) 0.3 x10^3/uL (0.0-1.1) Eosinophils # (Auto) 0.1 x10^3/uL (0.0-0.7) Basophils # (Auto) 0.1 x10^3/uL (0.0-0.2) Sodium Level 138 mmol/L (136-145) Potassium Level 3.5 mmol/L (3.5-5.1) Chloride Level 94 mmol/L (98-107) Carbon Dioxide Level 26 mmol/L (21-32) Anion Gap 18 (6-14) Blood Urea Nitrogen 20 mg/dL (7-20) Creatinine 1.2 mg/dL (0.6-1.0) Estimated GFR (Cockcroft-Gault) 54.2 Glucose Level 80 mg/dL (70-99) Calcium Level 9.2 mg/dL (8.5-10.1) Magnesium Level 1.2 mg/dL (1.8-2.4) Total Bilirubin 2.3 mg/dL (0.2-1.0) Direct Bilirubin 1.5 mg/dL (0.0-0.2) Aspartate Amino Transf (AST/SGOT) 202 U/L (15-37) Alanine Aminotransferase (ALT/SGPT) 44 U/L (14-59) Alkaline Phosphatase 258 U/L (46-116) Troponin I High Sensitivity 10 ng/L (4-50) FU-Ytd-S-Type Natriuretic Peptide 280 pg/mL (0-124) Total Protein 7.4 g/dL (6.4-8.2) Albumin 3.0 g/dL (3.4-5.0) Lipase 173 U/L (73-393) Salicylates Level 1.6 mg/dL (2.8-20.0) Salicylate Last Dose Date Unknown Salicylate Last Dose Time Unknown Ethyl Alcohol Level < 10 mg/dL (0-10) SARS-CoV-2 Antigen (Rapid) Negative (NEGATIVE) Urine Collection Type U cath Urine Color [place] Urine Clarity Clear Urine pH 6.0 (<5.0-8.0) Urine Specific [place] 1.020 (1.000-1.030) Urine Protein 30 mg/dL (NEG-TRACE) Urine Glucose (UA) Negative mg/dL (NEG) Urine Ketones (Stick) 40 mg/dL (NEG) Urine Blood Negative (NEG) Urine Nitrite Positive (NEG) Urine Bilirubin Large (NEG) Urine Urobilinogen Dipstick 4.0 mg/dL (0.2 mg/dL) Urine Leukocyte Esterase Small (NEG) Urine RBC 0 /HPF (0-2) Urine WBC Occ /HPF (0-4) Urine Bacteria 0 /HPF (0-FEW) Urine Hyaline Casts Few /HPF Urine Mucus Mod /LPF Urine Opiates Screen Neg (NEG) Urine Methadone Screen Neg (NEG) Urine Barbiturates Neg (NEG) Urine Phencyclidine Screen Neg (NEG) Urine Amphetamine/Methamphetamine Neg (NEG) Urine Benzodiazepines Screen Neg (NEG) Urine Cocaine Screen Neg (NEG) Urine Cannabinoids Screen Neg (NEG) Urine Ethyl Alcohol Pos (NEG) Laboratory Tests Test 09/17/21 08:46 09/17/21 09:25 09/17/21 10:00 Glucose (Fingerstick) 67 mg/dL (70-99) White Blood Count 7.3 x10^3/uL (4.0-11.0) Red Blood Count 2.89 x10^6/uL (3.50-5.40) Hemoglobin 10.0 g/dL (12.0-15.5) Hematocrit 29.9 % (36.0-47.0) Mean Corpuscular Volume 103 fL (79-100) Mean Corpuscular Hemoglobin 35 pg (25-35) Mean Corpuscular Hemoglobin Concent 34 g/dL (31-37) Red Cell Distribution Width 14.9 % (11.5-14.5) Platelet Count 182 x10^3/uL (140-400) Neutrophils (%) (Auto) 82 % (31-73) Lymphocytes (%) (Auto) 12 % (24-48) Monocytes (%) (Auto) 5 % (0-9) Eosinophils (%) (Auto) 1 % (0-3) Basophils (%) (Auto) 1 % (0-3) Neutrophils # (Auto) 5.9 x10^3/uL (1.8-7.7) Lymphocytes # (Auto) 0.9 x10^3/uL (1.0-4.8) Monocytes # (Auto) 0.3 x10^3/uL (0.0-1.1) Eosinophils # (Auto) 0.1 x10^3/uL (0.0-0.7) Basophils # (Auto) 0.1 x10^3/uL (0.0-0.2) Sodium Level 138 mmol/L (136-145) Potassium Level 3.5 mmol/L (3.5-5.1) Chloride Level 94 mmol/L (98-107) Carbon Dioxide Level 26 mmol/L (21-32) Anion Gap 18 (6-14) Blood Urea Nitrogen 20 mg/dL (7-20) Creatinine 1.2 mg/dL (0.6-1.0) Estimated GFR (Cockcroft-Gault) 54.2 Glucose Level 80 mg/dL (70-99) Calcium Level 9.2 mg/dL (8.5-10.1) Magnesium Level 1.2 mg/dL (1.8-2.4) Total Bilirubin 2.3 mg/dL (0.2-1.0) Direct Bilirubin 1.5 mg/dL (0.0-0.2) Aspartate Amino Transf (AST/SGOT) 202 U/L (15-37) Alanine Aminotransferase (ALT/SGPT) 44 U/L (14-59) Alkaline Phosphatase 258 U/L (46-116) Troponin I High Sensitivity 10 ng/L (4-50) GT-Kcd-B-Type Natriuretic Peptide 280 pg/mL (0-124) Total Protein 7.4 g/dL (6.4-8.2) Albumin 3.0 g/dL (3.4-5.0) Lipase 173 U/L (73-393) Salicylates Level 1.6 mg/dL (2.8-20.0) Salicylate Last Dose Date Unknown Salicylate Last Dose Time Unknown Ethyl Alcohol Level < 10 mg/dL (0-10) SARS-CoV-2 Antigen (Rapid) Negative (NEGATIVE) Urine Collection Type U cath Urine Color [place] Urine Clarity Clear Urine pH 6.0 (<5.0-8.0) Urine Specific [place] 1.020 (1.000-1.030) Urine Protein 30 mg/dL (NEG-TRACE) Urine Glucose (UA) Negative mg/dL (NEG) Urine Ketones (Stick) 40 mg/dL (NEG) Urine Blood Negative (NEG) Urine Nitrite Positive (NEG) Urine Bilirubin Large (NEG) Urine Urobilinogen Dipstick 4.0 mg/dL (0.2 mg/dL) Urine Leukocyte Esterase Small (NEG) Urine RBC 0 /HPF (0-2) Urine WBC Occ /HPF (0-4) Urine Bacteria 0 /HPF (0-FEW) Urine Hyaline Casts Few /HPF Urine Mucus Mod /LPF Urine Opiates Screen Neg (NEG) Urine Methadone Screen Neg (NEG) Urine Barbiturates Neg (NEG) Urine Phencyclidine Screen Neg (NEG) Urine Amphetamine/Methamphetamine Neg (NEG) Urine Benzodiazepines Screen Neg (NEG) Urine Cocaine Screen Neg (NEG) Urine Cannabinoids Screen Neg (NEG) Urine Ethyl Alcohol Pos (NEG) Images Images [facility] [address] [place] [address] IMAGING REPORT Signed PATIENT: JEIMY CAMPOS PACCOUNT: [id number] : 1955 LOCATION: ER AGE: 66 SEX: F EXAM STATUS: PRE ER ORD. PHYSICIAN: RUDDY ALLEN DO REASON: near-syncope PROCEDURE: PORTABLE CHEST 1V Single view chest dated 09/17/2021 9:39 AM: COMPARISON: 03/08/2021 Clinical Indication: Syncope. Findings: Single upright portable exam of the chest was performed. Heart size and mediastinal contours are within normal limits. Lungs are clear. No consolidation or pleural effusion. No pneumothorax. IMPRESSION: No acute radiographic abnormality. IMAGING REPORT Signed PATIENT: JEIMY CAMPOS PACCOUNT: [id number] : 1955 LOCATION: ER AGE: 66 SEX: F EXAM STATUS: PRE ER ORD. PHYSICIAN: RUDDY ALLEN DO REASON: syncope PROCEDURE: CT HEAD AND CERVICAL SPINE WO Exam Date: 09/17/2021 9:[address] HEAD AND C-SPINE WO Indication: Reason: syncope / Spl. Instructions: / History: . One or more of the following dose reduction techniques were utilized: *Automated exposure control (AEC) *Adjustment of mA and/or kV according to patient size *Use of iterative reconstruction technique *CT scan done according to ALARA, or ALARA/IMAGE GENTLY EXAMINATION: CT OF THE HEAD WITHOUT CONTRAST INDICATION: Trauma, head injury, headache; TECHNIQUE: Noncontrast helical axial CT images of the head were obtained. COMPARISON: March 08, 2021 FINDINGS: The ventricles and sulci are prominent consistent with cerebral volume loss. Patchy ill-defined low attenuation areas in the subcortical and periventricular white matter bilaterally are consistent with microvascular disease. There is n o evidence of acute intracranial hemorrhage, extra-axial collection, mass effect, midline shift, or acute territorial infarct. No lesion of the skull base or the calvarium is seen. The visualized paranasal sinuses, mastoid air cells, and orbits are normal in appearance. IMPRESSION: No evidence for acute intracranial abnormality. Volume loss and microvascular disease. IMAGING REPORT Signed PATIENT: JEIMY CAMPOS PACCOUNT: [id number] : 1955 LOCATION: SOUTH AGE: 66 SEX: F EXAM STATUS: ADM IN ORD. PHYSICIAN: RUDDY ALLEN DO REASON: elevated liver enzymes, ruq us PROCEDURE: ABDOMEN LTD Exam Date: 09/17/2021 11:46 AM US ABDOMEN LIMITED Indication: Reason: elevated liver enzymes, ruq us / Spl. Instructions: / History: . TECHNIQUE: Multiple longitudinal and transverse sonographic images of the right upper quadrant and gallbladder are submitted for interpretation. COMPARISON: March 08, 2021 ultrasound FINDINGS: There is a 1.4 cm hepatic cyst. The liver is normal in size but diffusely increased in echogenicity and heterogeneous in echotexture. The portal vein is patent, with hepatopetal flow. No suspicious focal intrahepatic abnormality is seen. There are multiple gallstones. There is no gallbladder wall thickening or pericholecystic fluid. There is no biliary ductal dilatation, with the common bile duct measuring 4 mm. The visualized abdominal aorta, inferior vena cava and pancreas are within normal limits. There is no upper abdominal ascites. The right kidney is normal in appearance, measuring 10.1 cm. IMPRESSION: Diffusely increased hepatic echogenicity and heterogeneous echotexture, consistent with underlying fatty infiltration and/or hepatocellular disease. This limits sonographic sensitivity. Hepatic cyst. Gallstones. VTE Prophylaxis Ordered VTE Prophylaxis Devices: Yes VTE Pharmacological Prophylaxi: No Assessment/Plan Assessment/Plan Syncope Acute cystitis KAREN due to vasomotor nephropathy Normocytic anemia Transaminitis Failure to thrive Plan: We will place consult to cardiology Echocardiogram pending Orthostatic vitals Telemetry IV fluids Lipids from 03/09/2021 showed LDL 127, HDL 117, cholesterol 262. Ultrasound consistent with fatty infiltration and/or hepatocellular disease. PT/OT Resume her medications FEN - Cardiac diet PPX - SCDs FULL CODE Dispo - inpatient for above Justifications for Admission Other Justification angina MARYANNE LEGGETT MD Sep 17, 2021 12:42
[2021-09-17] MEDS ORDERED: ONDANSETRON PF 4 MG/2 ML VIAL. IVP PRN (13:00)
[2021-09-17] MEDS ORDERED: MAG HYDROX/ALUMINUM HYD/SIMETH 30 ML ORAL.SUSP PO PRN (13:00)
[2021-09-17] MEDS ORDERED: ZOLPIDEM 5 MG TABLET. PO PRN (13:00)
[2021-09-17] MEDS ORDERED: ACETAMINOPHEN 325 MG TABLET. PO PRN (13:00)
[2021-09-17] MEDS ORDERED: CALCIUM CARBONATE 500 MG TAB.CHEW PO PRN (13:00)
[2021-09-17] MEDS ORDERED: HYDROcodone/APAP 5/325MG 1 TAB TABLET PO PRN (13:00)
[2021-09-17 14:17] VITALS: BP 108/77
[2021-09-17 18:52] VITALS: BP 106/72
[2021-09-17] MEDS ORDERED: MAGNESIUM SULFATE 2GM 50 ML IV ONE (19:00)
[2021-09-17 22:40] VITALS: BP 114/66
[2021-09-18 02:46] VITALS: BP 127/76
[2021-09-18 04:16] LABS: CALCIUM 8.7 mg/dL (8.5-10.1); CREATININE 1.1 mg/dL (0.6-1.0); GFR 59.9; POTASSIUM 3.4 mmol/L (3.5-5.1)
--- NOTE | 2021-09-18 05:31 | EKG ---
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
--- NOTE | 2021-09-18 05:36 | EKG ---
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
[2021-09-18 07:55] VITALS: BP 118/78
[2021-09-18] MEDS: cefTRIAXone IV Push 1 GM VIAL. IVP SCH (09:00)
[2021-09-18 11:17] VITALS: BP 125/74
[2021-09-18] MEDS ORDERED: IBUP400T99 PO (12:21)
[2021-09-18] MEDS ORDERED: MAGN400T48 PO (12:21)
[2021-09-18] MEDS ORDERED: METO10TA81 PO (12:21)
[2021-09-18] MEDS ORDERED: FOLI0.8C PO (12:21)
[2021-09-18] MEDS ORDERED: PANT40TA77 PO (12:21)
[2021-09-18] MEDS ORDERED: CHOL5000 PO (12:21)
[2021-09-18] MEDS ORDERED: LIDO700A21 TP (12:21)
[2021-09-18] MEDS ORDERED: LORA10CA PO (12:21)
[2021-09-18] MEDS ORDERED: MAGNESIUM SULFATE 4GM 100 ML IV ONE (13:45)
[2021-09-18] MEDS ORDERED: POTASSIUM CHLORIDE 20 MEQ TABLET.ER. PO ONE (13:45)
[2021-09-18 14:16] VITALS: BP 105/63
[2021-09-18] MEDS: THIAMINE 100 MG TABLET. PO SCH (14:52)
[2021-09-18] MEDS: FOLIC/VIT B COMP W-C (RENAL) TABLET. PO SCH (14:52)
--- NOTE | 2021-09-18 15:26 | PDOC ---
[employer] PROGRESS NOTE Date of Service DOS: DATE: 09/18/21 TIME: 15:17 Chief Complaint Chief Complaint Syncope Acute cystitis KAREN due to vasomotor nephropathy macrocytic anemia Transaminitis Failure to thrive, moderate malnutrition and vitamin deficiency disorder Hx of Vitamin B12 deficiency, will replace hypokalemia, hypomagensemai, cognitive decline, light/moderate alcohol use reported History of Present Illness History of Present Illness tele looks good needs PT and OT eval, mult falls, start b12 shot, shehas had them before and stopped, and has not been takign her B complex pills, restart that, she reports only drinking one glass of wine daily, even after I told her that her labs looked like she drank more than a bottle daily,.h her was here and they disagreed over multiple items about her medical history and plan, Vitals/I&O Vitals/I&O: Vital Signs Date Time Temp Pulse Resp B/P (MAP) Pulse Ox O2 Delivery O2 Flow Rate FiO2 09/18/21 14:16 98.0 85 20 105/63 (77) 99 Room Air 98.0 I & O 09/17/21 09/17/21 09/18/21 15:00 23:00 07:00 Intake Total 220 ml 0 ml Output Total 0 ml Balance 220 ml 0 ml Physical Exam Physical Exam: confusion to events, very poor recall for her age General: Alert, Oriented X3, Cooperative, No acute distress Heart: Regular rate Lungs: Clear, Wheezing Extremities: No clubbing, No cyanosis Skin: No breakdown Labs Labs: Laboratory Tests Test 09/17/21 15:20 09/18/21 03:40 Troponin I High Sensitivity 13 ng/L (4-50) Sodium Level 138 mmol/L (136-145) Potassium Level 3.4 mmol/L (3.5-5.1) Chloride Level 96 mmol/L (98-107) Carbon Dioxide Level 28 mmol/L (21-32) Anion Gap 14 (6-14) Blood Urea Nitrogen 19 mg/dL (7-20) Creatinine 1.1 mg/dL (0.6-1.0) Estimated GFR (Cockcroft-Gault) 59.9 Glucose Level 93 mg/dL (70-99) Calcium Level 8.7 mg/dL (8.5-10.1) Review of Systems Review of Systems: confusion, weakness Assessment and Plan Assessmemt and Plan Problems Medical Problems: (1) Alcohol abuse Status: Acute (2) Conjugated hyperbilirubinemia Status: Acute (3) Syncope and collapse Status: Acute (4) UTI (urinary tract infection) Status: Acute Comment Review of Relevant I have reviewed the following items stephy (where applicable) has been applied. Medications: Current Medications Medications (Trade) Dose Ordered Sig/Zach Route PRN Reason Start Time Stop Time Status Last Admin Dose Admin Ceftriaxone Sodium (Rocephin) 1 gm Q24H IVP 09/18/21 09:00 09/20/21 08:59 09/18/21 09:00 Magnesium Sulfate 50 ml @ 25 mls/hr 1X ONCE IV 09/17/21 19:00 09/17/21 20:59 DC 09/17/21 18:46 Thiamine Mononitrate (Vitamin B-1) 100 mg DAILY PO 09/18/21 13:45 09/18/21 14:52 Vitamin B Complex/ Vitamin C (Gill-Tammy) 1 tab DAILY PO 09/18/21 13:45 09/18/21 14:52 Potassium Chloride (Klor-Con) 40 meq 1X ONCE PO 09/18/21 13:45 09/18/21 13:46 DC 09/18/21 14:52 Magnesium Sulfate 100 ml @ 25 mls/hr 1X ONCE IV 09/18/21 13:45 09/18/21 17:44 09/18/21 14:59 Justifications for Admission Other Justification angina CHET LAMB MD Sep 18, 2021 15:26
[2021-09-18] MEDS ORDERED: CYANOCOBALAMIN (VITAMIN B-12) 1,000 MCG/ML VIAL. IM ONE (16:00)
--- NOTE | 2021-09-18 17:50 | PDOC2 ---
CONSULT Date of Consult Date of Consult DATE: 09/18/21 TIME: 17:44 Reason for Consult Reason for Consult: Syncope Referring Physician Referring Physician: Dr. Rudolph Identification/Chief Complaint Chief Complaint Syncope Source Source: Chart review, Patient History of Present Illness Reason for Visit: The patient is a 66-year-old female who reportedly collapsed in the bathroom prior to admission. She was brought to the emergency room and initial evaluation included an EKG that showed a sinus rhythm with no acute ischemic changes. Patient's chest x-ray showed no acute cardiopulmonary processes. Troponin was initially normal and has remained normal x3 draws. Work-up is included a CT head scan that show no acute intracranial abnormalities and a CT scan of the neck that showed no cervical spinal fracture or subluxation. The patient has a history of possible seizure disorder although this is well somewhat uncertain as well as some depression. She is more alert today. There however appears to be no documentation of a seizure disorder. Past Medical History Cardiovascular: HTN, Syncope, Other Pulmonary: No pertinent hx CENTRAL NERVOUS SYSTEM: Seizure GI: GERD, Other Heme/Onc: Anemia NOS Hepatobiliary: Other Psych: Anxiety, Depression, Other Musculoskeletal: Osteoarthritis Rheumatologic: No pertinent hx Infectious disease: No pertinent hx Renal/: No pertinent hx Endocrine: No pertinent hx Past Surgical History Past Surgical History: Hysterectomy Family History Family History: Cancer Social History Social History: Parent No ALCOHOL: none (Although patient denies alcohol, urine ethanol was positive) Drugs: None Current Problem List Problem List Problems Medical Problems: (1) Alcohol abuse Status: Acute (2) Conjugated hyperbilirubinemia Status: Acute (3) Syncope and collapse Status: Acute (4) UTI (urinary tract infection) Status: Acute Current Medications Current Medications Current Medications Ringer's Solution 1,000 ml @ 1,000 mls/hr Q1H IV ; Start 09/17/21 at 08:45; Stop 09/17/21 at 09:31; Status DC Sodium Chloride 1,000 ml @ 1,000 mls/hr 1X ONCE IV Last administered on 09/17/21at 09:49; Start 09/17/21 at 09:30; Stop 09/17/21 at 10:29; Status DC Ceftriaxone Sodium (Rocephin) 1 gm 1X ONCE IVP Last administered on 09/17/21at 11:59; Start 09/17/21 at 11:45; Stop 09/17/21 at 11:46; Status DC Ceftriaxone Sodium (Rocephin) 1 gm Q24H IVP Last administered on 09/18/21at 09:00; Start 09/18/21 at 09:00; Stop 09/20/21 at 08:59 Ondansetron HCl (Zofran) 4 mg PRN Q6HRS PRN IVP NAUSEA/VOMITING; Start 09/17/21 at 13:00 Al Hydroxide/Mg Hydroxide (Mylanta Plus Xs) 30 ml PRN Q3HRS PRN PO HEARTBURN / GAS; Start 09/17/21 at 13:00 Calcium Carbonate/ Glycine (Tums) 500 mg PRN Q3HRS PRN PO UPSET STOMACH; Start 09/17/21 at 13:00 Zolpidem Tartrate (Ambien) 5 mg PRN QHS PRN PO INSOMNIA, MAY REPEAT IN 1HR; Start 09/17/21 at 13:00 Acetaminophen/ Hydrocodone Bitart (Lortab 5/325) 1 tab PRN Q4HRS PRN PO PAIN; Start 09/17/21 at 13:00 Acetaminophen (Tylenol) 650 mg PRN Q6HRS PRN PO Headaches, Temp > 101.5F; Start 09/17/21 at 13:00 Magnesium Sulfate 50 ml @ 25 mls/hr 1X ONCE IV Last administered on 09/17/21at 18:46; Start 09/17/21 at 19:00; Stop 09/17/21 at 20:59; Status DC Thiamine Mononitrate (Vitamin B-1) 100 mg DAILY PO Last administered on 09/18/21at 14:52; Start 09/18/21 at 13:45 Vitamin B Complex/ Vitamin C (Gill-Tammy) 1 tab DAILY PO Last administered on 09/18/21at 14:52; Start 09/18/21 at 13:45 Potassium Chloride (Klor-Con) 40 meq 1X ONCE PO Last administered on 09/18/21a t 14:52; Start 09/18/21 at 13:45; Stop 09/18/21 at 13:46; Status DC Magnesium Sulfate 100 ml @ 25 mls/hr 1X ONCE IV Last administered on 09/18/21at 14:59; Start 09/18/21 at 13:45; Stop 09/18/21 at 17:44 Cyanocobalamin (Vitamin B-12 Inj) 1,000 mcg 1X ONCE IM Last administered on 09/18/21at 17:02; Start 09/18/21 at 16:00; Stop 09/18/21 at 16:01; Status DC Active Scripts Active Magnesium Oxide 400 Mg Tablet 1 Tab PO BID Reported Pantoprazole Sodium (Pantoprazole Sodium) 40 Mg Tablet.dr 40 Mg PO DAILYAC Reglan (Metoclopramide Hcl) 10 Mg Tablet 10 Mg PO HS Magnesium Oxide 400 Mg Tablet 400 Mg PO DAILY Lidocaine PATCH (Lidocaine) 1 Each Adh..patch 1 Each TP DAILY REMOVE AFTER 12 HOURS Ibu (Ibuprofen) 400 Mg Tablet 200 Mg PO PRN BID PRN Folic Acid 0.8 Mg Capsule 1 Cap PO DAILY 30 Days Claritin (Loratadine) 10 Mg Capsule 10 Mg PO PRN DAILY PRN Vitamin D3 (Vitamin D) 125 Mcg Capsule 125 Mcg PO DAILY 5,000 UNITS = 125 MCG Allergies Allergies: Coded Allergies: soy (Verified Allergy, Intermediate, Hives, 03/20/21) ROS General: YES: Fatigue Cardiovascular: yes Lt Headedness Neurological: Yes Confusion, Yes Other (Near syncope) Physical Exam General: No acute distress HEENT: Atraumatic Lungs: Clear to auscultation Heart: Regular rate Abdomen: Normal bowel sounds Vitals VITALS Vital Signs Date Time Temp Pulse Resp B/P (MAP) Pulse Ox O2 Delivery O2 Flow Rate FiO2 09/18/21 14:16 98.0 85 20 105/63 (77) 99 Room Air 98.0 Labs Labs Laboratory Tests Test 09/17/21 08:46 09/17/21 09:25 09/17/21 10:00 09/17/21 12:50 Glucose (Fingerstick) 67 mg/dL (70-99) White Blood Count 7.3 x10^3/uL (4.0-11.0) Red Blood Count 2.89 x10^6/uL (3.50-5.40) Hemoglobin 10.0 g/dL (12.0-15.5) Hematocrit 29.9 % (36.0-47.0) Mean Corpuscular Volume 103 fL (79-100) Mean Corpuscular Hemoglobin 35 pg (25-35) Mean Corpuscular Hemoglobin Concent 34 g/dL (31-37) Red Cell Distribution Width 14.9 % (11.5-14.5) Platelet Count 182 x10^3/uL (140-400) Neutrophils (%) (Auto) 82 % (31-73) Lymphocytes (%) (Auto) 12 % (24-48) Monocytes (%) (Auto) 5 % (0-9) Eosinophils (%) (Auto) 1 % (0-3) Basophils (%) (Auto) 1 % (0-3) Neutrophils # (Auto) 5.9 x10^3/uL (1.8-7.7) Lymphocytes # (Auto) 0.9 x10^3/uL (1.0-4.8) Monocytes # (Auto) 0.3 x10^3/uL (0.0-1.1) Eosinophils # (Auto) 0.1 x10^3/uL (0.0-0.7) Basophils # (Auto) 0.1 x10^3/uL (0.0-0.2) Sodium Level 138 mmol/L (136-145) Potassium Level 3.5 mmol/L (3.5-5.1) Chloride Level 94 mmol/L (98-107) Carbon Dioxide Level 26 mmol/L (21-32) Anion Gap 18 (6-14) Blood Urea Nitrogen 20 mg/dL (7-20) Creatinine 1.2 mg/dL (0.6-1.0) Estimated GFR (Cockcroft-Gault) 54.2 Glucose Level 80 mg/dL (70-99) Calcium Level 9.2 mg/dL (8.5-10.1) Magnesium Level 1.2 mg/dL (1.8-2.4) Total Bilirubin 2.3 mg/dL (0.2-1.0) Direct Bilirubin 1.5 mg/dL (0.0-0.2) Aspartate Amino Transf (AST/SGOT) 202 U/L (15-37) Alanine Aminotransferase (ALT/SGPT) 44 U/L (14-59) Alkaline Phosphatase 258 U/L (46-116) Troponin I High Sensitivity 10 ng/L (4-50) 11 ng/L (4-50) UP-Uzg-V-Type Natriuretic Peptide 280 pg/mL (0-124) Total Protein 7.4 g/dL (6.4-8.2) Albumin 3.0 g/dL (3.4-5.0) Lipase 173 U/L (73-393) Salicylates Level 1.6 mg/dL (2.8-20.0) Salicylate Last Dose Date Unknown Salicylate Last Dose Time Unknown Ethyl Alcohol Level < 10 mg/dL (0-10) SARS-CoV-2 RNA (VINCE) Negative (Negative) SARS-CoV-2 Antigen (Rapid) Negative (NEGATIVE) Urine Collection Type U cath Urine Color Leslie Urine Clarity Clear Urine pH 6.0 (<5.0-8.0) Urine Specific [place] 1.020 (1.000-1.030) Urine Protein 30 mg/dL (NEG-TRACE) Urine Glucose (UA) Negative mg/dL (NEG) Urine Ketones (Stick) 40 mg/dL (NEG) Urine Blood Negative (NEG) Urine Nitrite Positive (NEG) Urine Bilirubin Large (NEG) Urine Urobilinogen Dipstick 4.0 mg/dL (0.2 mg/dL) Urine Leukocyte Esterase Small (NEG) Urine RBC 0 /HPF (0-2) Urine WBC Occ /HPF (0-4) Urine Bacteria 0 /HPF (0-FEW) Urine Hyaline Casts Few /HPF Urine Mucus Mod /LPF Urine Opiates Screen Neg (NEG) Urine Methadone Screen Neg (NEG) Urine Barbiturates Neg (NEG) Urine Phencyclidine Screen Neg (NEG) Urine Amphetamine/Methamphetamine Neg (NEG) Urine Benzodiazepines Screen Neg (NEG) Urine Cocaine Screen Neg (NEG) Urine Cannabinoids Screen Neg (NEG) Urine Ethyl Alcohol Pos (NEG) Test 09/17/21 15:20 09/18/21 03:40 Troponin I High Sensitivity 13 ng/L (4-50) Sodium Level 138 mmol/L (136-145) Potassium Level 3.4 mmol/L (3.5-5.1) Chloride Level 96 mmol/L (98-107) Carbon Dioxide Level 28 mmol/L (21-32) Anion Gap 14 (6-14) Blood Urea Nitrogen 19 mg/dL (7-20) Creatinine 1.1 mg/dL (0.6-1.0) Estimated GFR (Cockcroft-Gault) 59.9 Glucose Level 93 mg/dL (70-99) Calcium Level 8.7 mg/dL (8.5-10.1) Laboratory Tests Test 09/18/21 03:40 Sodium Level 138 mmol/L (136-145) Potassium Level 3.4 mmol/L (3.5-5.1) Chloride Level 96 mmol/L (98-107) Carbon Dioxide Level 28 mmol/L (21-32) Anion Gap 14 (6-14) Blood Urea Nitrogen 19 mg/dL (7-20) Creatinine 1.1 mg/dL (0.6-1.0) Estimated GFR (Cockcroft-Gault) 59.9 Glucose Level 93 mg/dL (70-99) Calcium Level 8.7 mg/dL (8.5-10.1) Images Images Imaging as above. Assessment/Plan Assessment/Plan 1. Syncope. Patient has a history of a possible seizure disorder. Initial cardiac testing including EKG, chest x-ray and troponins are normal. In this setting we will continue on telemetry. Patient also has a probable UTI which may be contributing to her condition. We will check an echocardiogram and continue close monitoring. 2. Heart murmur on examination. We will check an echocardiogram. 3. Probable UTI. Treatment as above. 4. History of possible depression. JEANNIE BAUMAN MD Sep 18, 2021 17:50
[2021-09-18 19:25] VITALS: BP 89/60
[2021-09-18 22:43] VITALS: BP 90/61
[2021-09-19 02:46] VITALS: BP 108/64
[2021-09-19 06:30] VITALS: BP 102/57
[2021-09-19 08:45] LABS: GFR 66.9; MAGNESIUM 2.3 mg/dL (1.8-2.4); POTASSIUM 3.6 mmol/L (3.5-5.1)
[2021-09-19 08:53] LABS: CHOLESTEROL/HDL RATIO 3.9
[2021-09-19] MEDS: THIAMINE 100 MG TABLET. PO SCH (08:53)
[2021-09-19] MEDS: FOLIC/VIT B COMP W-C (RENAL) TABLET. PO SCH (08:53)
[2021-09-19] MEDS: cefTRIAXone IV Push 1 GM VIAL. IVP SCH (08:55)
[2021-09-19 11:00] VITALS: BP 112/91
[2021-09-19 11:05] VITALS: BP 117/74
[2021-09-19 11:10] VITALS: BP 85/67
[2021-09-19] MEDS ORDERED: THIA100T22 PO (14:27)
[2021-09-19] MEDS ORDERED: PANT40TA77 PO (14:27)
[2021-09-19] MEDS ORDERED: FOLI0.8T21 PO (14:27)
[2021-09-19] MEDS ORDERED: CEFD300C PO (14:27)
[2021-09-19] MEDS ORDERED: CHOL5000 PO (14:27)
--- NOTE | 2021-09-19 14:29 | DISCH ---
DISCHARGE INSTRUCTIONS Condition on Discharge Condition on Discharge: Stable Activity After Discharge Activity Instructions for Disc: Activity as tolerated Lifting Instructions after Dis: Do not lift >10 pounds Exercise Instruction after Dis: Progress as tolerated Driving Instructions after Dis: Do not drive Weight Bearing Status after Di: As tolerated Diet after Discharge Diet after Discharge: Cardiac Diet Texture: Regular Checks after Discharge Checks after discharge: Check blood press - daily, Check blood sugar, ac/hs Contacting the DR. after DC Call your doctor for: Concerns you may have Follow-Up Follow up with: PCP within 2 weeks of discharge Follow Up With: Cardiology as needed PAGE HOLLIS MD Sep 19, 2021 14:29
--- NOTE | 2021-09-19 15:12 | NUR ---
SS following for discharge planning. SS reviewed pt chart and discussed with pt RN. Pt is from home with spouse and is currently on room air. COVID19 negative. PT/OT recommended home. Discharge order on the chart for home with self care. Script received for walker. Script and clinical phoned and faxed to [facility], ; fax [phone]. Walker being delivered to hospital by 1600. Pt's RN notified.
[2021-09-19 15:30] VITALS: BP 115/70
--- NOTE | 2021-09-19 16:00 | NUR ---
Discharge Note: JEIMY CAMPOS [address] Discharge instructions and discharge home medications reviewed with Patient and a copy given. All questions have been answered and understanding verbalized. The following instructions and handouts were given: midodrine, cefdinir Patient discharged to home with spouse via wheelchair.
--- NOTE | 2021-09-19 16:27 | PDOC ---
RUBY PARMAR JACK WINDER 09/19/21 1627: CARDIO Progress Notes Date and Time Date of Service 09/19/21 Time of Evaluation 1120 Subjective Subjective: No Chest Pain, No shortness of breath, No Palpitations Vitals Vitals Vital Signs Date Time Temp Pulse Resp B/P (MAP) Pulse Ox O2 Delivery O2 Flow Rate FiO2 09/19/21 11:10 130 85/67 (73) 09/19/21 11:00 98.3 16 98 Room Air 98.3 Weight Weight [ ] Input and Output Intake and Output Intake and Output 09/19/21 07:00 Intake Total 340 ml Balance 340 ml Intake Oral 340 ml # Voids 3 # Bowel Movements 3 Laboratory Labs Laboratory Tests Test 09/19/21 07:55 Sodium Level 138 mmol/L (136-145) Potassium Level 3.6 mmol/L (3.5-5.1) Chloride Level 100 mmol/L (98-107) Carbon Dioxide Level 34 mmol/L (21-32) Anion Gap 4 (6-14) Blood Urea Nitrogen 17 mg/dL (7-20) Creatinine 1.0 mg/dL (0.6-1.0) Estimated GFR (Cockcroft-Gault) 66.9 Glucose Level 110 mg/dL (70-99) Calcium Level 9.0 mg/dL (8.5-10.1) Magnesium Level 2.3 mg/dL (1.8-2.4) Triglycerides Level 95 mg/dL (0-150) Cholesterol Level 225 mg/dL (0-200) LDL Cholesterol, Calculated 149 mg/dL (0-100) VLDL Cholesterol, Calculated 19 mg/dL (0-40) Non-HDL Cholesterol Calculated 168 mg/dL (0-129) HDL Cholesterol 57 mg/dL (40-60) Cholesterol/HDL Ratio 3.9 Thyroid Stimulating Hormone (TSH) 2.646 uIU/mL (0.358-3.74) Microbiology Micro Microbiology 09/17/21 Urine Culture - Final, Complete Physical Exam HEENT: Neck Supple W Full Motion Chest: Symmetric LUNGS: Clear to Auscultation Heart: RRR Abdomen: Soft N/T Extremities: No Edema Neurology: alert, follow commands, confused Assessment Assessment 1. Syncope, orthostatic hypotension 2. KAREN; improved 3. UTI 4. Hypomagnesemia; replaced 5. PSVT; presently SR 6. Hyperlipidemia 7. Elevated LFTs 8. Failure to thrive Recommendations Fluid bolus Start midodrine Echocardiogram to assess LV systolic function Outpatient event monitor Follow up with Dr. Orellana as scheduled. Justicifation of Admission Dx: Justifications for Admission: Justification of Admission Dx: Yes Comments: syncope orthostatic hypotension JOSÉ ORELLANA MD 09/20/21 1126: CARDIO Progress Notes Plan Plan Late entry for 09/19/21 Pt. seen and examined. Agree with above COOKER TENDER note. I mostly suspect vasovagal etiologies. No clear indication for pacemaker or other intervention. Await outpt event monitor. Thanks RUBY PARMAR APRN Sep 19, 2021 16:27 JOSÉ ORELLANA MD Sep 20, 2021 11:26
[2021-09-19] MEDS ORDERED: MIDODRINE 5 MG TABLET PO SCH (18:00)
--- NOTE | 2021-09-29 10:31 | PDOC3 ---
[facility]-Discharge Summary Date of Admission: Date of Admission: Sep 17, 2021 Date of Discharge: Date of Discharge: Sep 19, 2021 Discharge Diagnosis: Discharge Diagnosis: Syncope Acute cystitis KAREN due to vasomotor nephropathy macrocytic anemia Transaminitis Failure to thrive, moderate malnutrition and vitamin deficiency disorder Hx of Vitamin B12 deficiency, will replace hypokalemia, hypomagensemai, cognitive decline, light/moderate alcohol use reported Consults: Consults: Cardiology Assessment/Plan 1. Syncope. Patient has a history of a possible seizure disorder. Initial cardiac testing including EKG, chest x-ray and troponins are normal. In this setting we will continue on telemetry. Patient also has a probable UTI which may be contributing to her condition. We will check an echocardiogram and continue close monitoring. Hospital Course: Hospital Course: 66-year-old female who reportedly collapsed in the bathroom prior to admission. She was brought to the emergency room and initial evaluation included an EKG that showed a sinus rhythm with no acute ischemic changes. Patient's chest x- ray showed no acute cardiopulmonary processes. Troponin was initially normal and has remained normal x3 draws. Work-up is included a CT head scan that show no acute intracranial abnormalities and a CT scan of the neck that showed no cervical spinal fracture or subluxation. The patient has a history of possible seizure disorder although this is well somewhat uncertain as well as some depression. She is more alert today. There however appears to be no documentation of a seizure disorder. By day of discharge, pt was clinically stable and ready for discharge. Rest of hospital course was uneventful Disposition: Disposition/Orders: D/C to Home Activity: Activity: Resume previous activity Diet: Diet: Cardiac Medications: Home Meds Active Scripts Cefdinir (CEFDINIR) 300 Mg Capsule, 1 CAP PO BID for UTI for 3 Days, #6 CAP Prov:PAGE HOLLIS MD 09/19/21 Thiamine Mononitrate (VITAMIN B-1) 100 Mg Tablet, 100 MG PO DAILY for supplement for 30 Days, #30 TAB 2 Refills Prov:PAGE HOLLIS MD 09/19/21 Folic Acid/Vitamin B Comp W-C (ULISES-MARTHA TABLET) 0.8 Mg Tablet, 1 TAB PO DAILY for supplement for 30 Days, #30 TAB 2 Refills Prov:PAGE HOLLIS MD 09/19/21 Pantoprazole Sodium (PANTOPRAZOLE SODIUM ) 40 Mg Tablet.dr, 40 MG PO DAILYAC for GERD for 30 Days, #30 TAB 2 Refills Prov:PAGE HOLLIS MD 09/19/21 Cholecalciferol (Vitamin D3) (Vitamin D3 ) 125 Mcg Capsule, 125 MCG PO DAILY for SUPPLEMENT for 30 Days, #30 CAP 2 Refills 5,000 UNITS = 125 MCG Prov:PAGE HOLLIS MD 09/19/21 Reported Medications Loratadine (CLARITIN) 10 Mg Capsule, 10 MG PO PRN DAILY PRN for ALLERGIES, CAP 09/18/21 Scheduled Cefdinir (Cefdinir), 1 CAP PO BID Cholecalciferol (Vitamin D3) (Vitamin D3 ), 125 MCG PO DAILY Folic Acid/Vitamin B Comp W-C (Ulises-Martha Tablet), 1 TAB PO DAILY Pantoprazole Sodium (Pantoprazole Sodium ), 40 MG PO DAILYAC Thiamine Mononitrate (Vitamin B-1), 100 MG PO DAILY Scheduled PRN Loratadine (Claritin), 10 MG PO PRN DAILY PRN for ALLERGIES, (Reported) Total Time: Total Time: Total time spent was 31 minutes in preparing scripts, discharge planning with SW and RN, and preparing this discharge summary. Justicifation of Admission Dx: Justifications for Admission: Justification of Admission Dx: Yes PAGE HOLLIS MD Sep 29, 2021 10:31
== END 2021-09-19 15:51 | disposition home or self-care (01) ==
LOC: ER 08:41 → 6 SOUTH 11:00 → INTOOBSV 11:00 → 6 SOUTH 15:09
PROVIDERS: ADMIT Family Medicine; ATTEND Family Medicine
DX: R55 Syncope and collapse (principal); Z20.822 Contact with and (suspected) exposure to COVID-19; N17.9 Acute kidney failure, unspecified; N30.00 Acute cystitis without hematuria; E83.42 Hypomagnesemia; R62.7 Adult failure to thrive; S09.90XA Unspecified injury of head, initial encounter; M19.90 Unspecified osteoarthritis, unspecified site; K21.9 Gastro-esophageal reflux disease without esophagitis; D53.9 Nutritional anemia, unspecified; E80.6 Other disorders of bilirubin metabolism; F10.129 Alcohol abuse with intoxication, unspecified; F41.9 Anxiety disorder, unspecified; F32.9 Major depressive disorder, single episode, unspecified; R74.01 Elevation of levels of liver transaminase levels; E44.0 Moderate protein-calorie malnutrition; E53.8 Deficiency of other specified B group vitamins; E78.5 Hyperlipidemia, unspecified; E87.6 Hypokalemia; I10 Essential (primary) hypertension; K76.89 Other specified diseases of liver; K80.20 Calculus of gallbladder without cholecystitis without obstruction; F10.10 Alcohol abuse, uncomplicated; F03.90 Unspecified dementia, unspecified severity, without behavioral disturbance, psychotic disturbance, mood disturbance, and anxiety; Z90.710 Acquired absence of both cervix and uterus; Z79.82 Long term (current) use of aspirin; Z79.899 Other long term (current) drug therapy; Z68.1 Body mass index [BMI] 19.9 or less, adult; Z98.890 Other specified postprocedural states; X58.XXXA Exposure to other specified factors, initial encounter; Y92.89 Other specified places as the place of occurrence of the external cause; Y93.89 Activity, other specified; Y99.8 Other external cause status
CPT/HCPCS: 36415; 70450; 71045; 72125; 76705; 80048; 80061; 80076; 80307; 80329; 81001; 82962; 83690; 83735; 83880; 84443; 84484; 85025; 87086; 87426; 93005; 96361; 96365; 96366; 96372; 96375; 96376; 97110; 97116; 97162; 97166; 97530; 99285; G0378; G0480; J0696; J3420; J3475; J7030; U0003; U0005; 96374; G0379

== ENCOUNTER 2021-09-23 08:17 | Emergency (ER) | payer OTHER ==
[~2021-09-23] VITALS: Ht 162.6 cm; Wt 54.0 kg
[~2021-09-23 08:17] MED LIST changes: +CEFD300C PO; +CHOL5000 PO; +FOLI0.8C PO; +FOLI0.8T21 PO; +IBUP400T99 PO; +LIDO700A21 TP; +LORA10CA PO; +METO10TA81 PO; +PANT40TA77 PO; +THIA100T22 PO
[2021-09-23 08:24] VITALS: BP 108/72
--- NOTE | 2021-09-23 08:36 | PHYS DOC ---
Past Medical History Past Medical History: Other Additional Past Medical Histor: HEART MURMUR, 'POSSIBLE SEIZURE' Past Surgical History: Hysterectomy Smoking Status: Never Smoker Alcohol Use: None Drug Use: None General Adult EDM: Chief Complaint: SYNCOPE HPI: HPI: 66-year-old female presents the emergency department with no complaints. She reports that her called EMS because he wanted rifle through her things. She states that she just left the hospital recently, and has no symptoms today. The patient denies syncope, nausea, vomiting, fever, chills, chest pain, shortness of breath, abdominal pain, urinary symptoms, cough, recent trauma, or any other complaints. Review of Systems: Review of Systems: Constitutional: Denies fever or chills. Eyes: Denies change in vision, pain. HENT: Denies congestion or sore throat. Respiratory: Denies cough or shortness of breath. Cardiovascular: Denies chest pain or edema. GI: Denies abdominal pain, nausea. : Denies change in urination, dysuria. Musculoskeletal: Denies extremity pain, or trauma. Skin: Denies rash, skin change. Neurologic: Denies headache, focal weakness. Psychiatric: Denies depression or anxiety. All other systems reviewed as negative except for what was mentioned in the HPI. Heart Score: C/O Chest Pain: No Allergies: Allergies: Allergies Coded Allergies Type Severity Reaction Last Updated Verified soy Allergy Intermediate Hives 03/20/21 Yes Physical Exam: PE: General: No acute distress. HEENT: Normocephalic, Normal hearing. Visual acuity grossly intact. Neck: Supple, Full range of motion without tenderness. Respiratory: Airway intact, normal phonation, vocalizing. No signs of accessory muscle use or respiratory distress. Cardiovascular: Normal rate, Extremities appear well perfused. Musculoskeletal: Normal range of motion. No deformity. Ambulatory. Abdomen: Nondistended, soft, nontender. Integumentary: No pallor, No jaundice. Neurologic: Alert, Oriented. Moves all extremities independently. Psychiatric: Cooperative Current Patient Data: Vital Signs: Vital Signs Date Time Temp Pulse Resp B/P (MAP) Pulse Ox O2 Delivery O2 Flow Rate FiO2 09/23/21 08:24 97.1 83 16 108/72 (84) 99 97.1 Course & Med Decision Making: Course & Med Decision Making Patient has no medical complaints today, she wants to go home. She was discharged and advised to follow-up with her primary care physician or return as needed. She has medical decision-making capacity at the time of evaluation. Departure Departure Impression: Primary Impression: Encounter for medical screening examination Disposition: HOME / SELF CARE / HOMELESS Condition: STABLE Referrals: NO PCP (PCP) Additional Instructions: You were seen in the emergency department and your health condition was deemed not to require admission to the hospital. It is important to realize that we can only evaluate you during the time that you are in her department. Occasionally health conditions can worsen upon leaving the emergency department. If this were to happen, please return to and allow us the opportunity to reevaluate you. It is a pleasure to take care of your health needs. Return to the ER if your symptoms worsen, do not improve, or if you develop additional symptoms that are concerning to you GEO LANE DO Sep 23, 2021 08:36
== END 2021-09-23 09:56 | disposition home or self-care (01) ==
LOC: ER 08:17
DX: R55 Syncope and collapse (principal); Z88.8 Allergy status to other drugs, medicaments and biological substances
CPT/HCPCS: 99281; 99283